=== PATIENT | female | born 1980 | race Caucasian/White ===

== ENCOUNTER 2017-03-26 11:58 | Emergency (ER) | payer OTHER ==
[2017-03-26 12:31] VITALS: BP 110/56
--- NOTE | 2017-03-26 13:00 | UC ---
General HPI - HPI Summary HPI Summary: 36 y/o female , 11 weeks of gestation sudden onset lightheadedness about 2 hrs ago as she was going to work no loc, and no syncope pt. felt very week and felt like she is going to pass out no abdominal pain , no n/v/d/c , no urinary sx no vaginal discharge or bleeding - History of Current Complaint Chief Complaint: UCDizziness Stated Complaint: LIGHTHEADED, FEELS LIKE PASSING OUT 11 WEEKS PREGN Time Seen by Provider: 03/26/17 12:04 Hx Obtained From: Patient Onset/Duration: Sudden Onset, Lasting Hours - 2, Resolved Timing: Constant Onset Severity: Severe Current Severity: None Aggravating: standing Alleviating: lying down Associated Signs & Symptoms: Positive: Dizziness, Headache, Weakness. Negative : Abdominal Pain, Anticoagulation Therapy, Back Pain, Confusion, Cough, Chest Pain, Decreased Responsiveness, Diarrhea, Dysuria, Decreased Oral Intake, Diaphoresis, Edema, Fever, Hematemesis, Hemoptysis, Immunocompromised, Melena, Nausea, Palpitations, Recent Medication Changes, Syncope, SOB, Trauma, Vomiting , Wheezing - Allergy/Home Medications Allergies/Adverse Reactions: Allergies Allergy/AdvReac Type Severity Reaction Status Date / Time Sulfa Drugs Allergy Severe Hives Verified 03/26/17 12:05 Home Medications: Home Medications Vitamin TAB* 1 tab PO DAILY 03/26/17 [History Confirmed 03/26/17] PMH/Surg Hx/FS Hx/Imm Hx Previously Healthy: Yes Endocrine History Of: Denies: Diabetes Cardiovascular History Of: Denies: Cardiac Disorders Respiratory History Of: Denies: Asthma - Surgical History Surgical History: Yes Surgery Procedure, Year, and Place: OPEN HEART SURGERY 1981. LEFT EYE CORRECTION 1986. 1997 - Family History Known Family History: Negative: Diabetes - Social History Alcohol Use: None Substance Use Type: None Smoking Status (MU): Former Smoker Type: Cigarettes Amount Used/How Often: 1/2 ppd Have You Smoked in the Last Year: Yes When Did the Patient Quit Smoking/Using Tobacco: FEBRUARY 2017 Review of Systems Constitutional: Negative Skin: Negative Eyes: Negative ENT: Negative Respiratory: Negative Cardiovascular: Negative Gastrointestinal: Negative Genitourinary: Negative Motor: Negative Neurological: Weakness All Other Systems Reviewed And Are Negative: Yes Physical Exam Triage Information Reviewed: Yes Appearance: Well-Appearing, No Pain Distress, Well-Nourished Vital Signs: Initial Vital Signs Temp 97.2 F 03/26/17 12:10 Resp 18 03/26/17 12:10 Pulse Ox 100 03/26/17 12:10 Eye Exam: Normal Eyes: Positive: Conjunctiva Clear ENT: Positive: Normal ENT inspection, Hearing grossly normal, Pharynx normal, TMs normal Dental Exam: Normal Neck exam: Normal Neck: Positive: Supple, Nontender, No Lymphadenopathy Respiratory: Positive: Chest non-tender, Lungs clear, Normal breath sounds, No respiratory distress Cardiovascular: Positive: RRR, No Murmur, Pulses Normal Abdominal Exam: Normal Abdomen Description: Positive: Nontender, No Organomegaly, Soft Musculoskeletal Exam: Normal Musculoskeletal: Positive: Strength Intact Neurological: Positive: Alert, Muscle Tone Normal Skin Exam: Normal Course/Dx - Differential Dx - Multi-Symptom Provider Diagnoses: lightheadedness Discharge - Discharge Plan Condition: Stable Disposition: HOME Patient Education Materials: Lightheadedness (ED) Referrals: Lila Miller MD [Primary Care Provider] - 5 Days Additional Instructions: go home and rest for the rest of the day increase fluid intake follow up with your pcp or OB in 5 to 7 days
== END 2017-03-26 13:04 | disposition home or self-care (01) ==
LOC: UCCORT 11:58
DX: O26.891 Other specified pregnancy related conditions, first trimester (principal); R42 Dizziness and giddiness; Z3A.11 11 weeks gestation of pregnancy; Z88.2 Allergy status to sulfonamides; Z87.891 Personal history of nicotine dependence
CPT/HCPCS: 81003; 93005; 99212; G0463